=== PATIENT | male | born 1970 | race Caucasian/White ===

== ENCOUNTER 2016-06-25 11:14 | Inpatient (IN) | payer OTHER ==
--- NOTE | 2016-06-25 11:34 | PDOC ---
History of Present Illness - General History Source: Patient Exam Limitations: No Limitations - History of Present Illness Initial Comments: CHIEF COMPLAINT: 45 y/o afebrile male with PMH kidney stones c/o right side and back pain for the past 3 days. HISTORY OF PRESENT ILLNESS: The patient states the pain has been getting worse over the past 3 days and is now constant. He states it feels like kidney stone pain. He also admits to nausea and vomiting. He denies f/c, THURMAN, CP, SOB, abd pain, hematuria, dysuria. Vital signs on arrival are within normal limits. REVIEW OF SYSTEMS: GENERAL/CONSTITUTIONAL: no fever/chills. No weakness. No weight change. HEAD, EYES, EARS, NOSE AND THROAT: No change in vision. No ear pain or discharge. No sore throat. CARDIOVASCULAR: No chest pain or shortness of breath. RESPIRATORY: No cough, wheezing, or hemoptysis. GASTROINTESTINAL: +nausea and vomiting. No diarrhea or abd pain. +right back pain GENITOURINARY: No dysuria, frequency, or change in urination. MUSCULOSKELETAL: No joint or muscle swelling or pain. No neck or back pain. SKIN: No rash or easy bruising. NEUROLOGIC: No headache, vertigo, loss of consciousness, or loss of sensation. PHYSICAL EXAM: GENERAL: The patient is awake, alert, and fully oriented, in no acute distress. HEAD: Normal with no signs of trauma. ENT: Pupils equal, round and reactive to light, extraocular movements intact, sclera anicteric, conjunctiva clear. Neck supple. LUNGS: Clear to auscultation bilaterally. Normal excursion. No respiratory distress or use of accessory muscles. CV: RRR, S1/S2, no MRG. Cap refill < 2 sec. ABDOMEN: Soft, non-distended, non-tender even to deep palpation, no hepatomegaly or splenomegaly, no masses. No suprapubic TTP. BACK: No flank pain with palpation. Right CVA TTP. EXTREMITIES: Normal range of motion, no edema. NEUROLOGICAL: Normal speech, normal gait. CN II-XII grossly intact. PSYCH: Normal mood, normal affect. SKIN: Warm, dry, normal turgor, no rashes or lesions noted. <Modesta Crawford - Last Filed: 06/25/16 16:26> <Fernandez Gordon - Last Filed: 06/25/16 20:09> - General Chief Complaint: Pain, Acute Stated Complaint: KIDNEY PAIN Time Seen by Provider: 06/25/16 11:32 Past History - Past Medical History Kidney Stones: Yes - Psycho/Social/Smoking Cessation Hx Anxiety: No Suicidal Ideation: No Smoking Status: No Smoking History: Never smoked Number of Cigarettes Smoked Daily: 0 Hx Alcohol Use: No Drug/Substance Use Hx: No <Modesta Crawford - Last Filed: 06/25/16 16:26> <Fernandez Gordon - Last Filed: 06/25/16 20:09> - Past Medical History Allergies/Adverse Reactions: Allergies Allergy/AdvReac Type Severity Reaction Status Date / Time No Known Allergies Allergy Verified 06/25/16 11:19 *Physical Exam - Vital Signs Last Vital Signs Temp Pulse Resp BP Pulse Ox 98.5 F 73 16 134/80 97 06/25/16 11:16 06/25/16 11:16 06/25/16 11:16 06/25/16 11:16 06/25/16 11:16 <Modesta Crawford - Last Filed: 06/25/16 16:26> - Vital Signs Last Vital Signs Temp Pulse Resp BP Pulse Ox 98.5 F 73 16 134/80 97 06/25/16 11:16 06/25/16 11:16 06/25/16 11:16 06/25/16 11:16 06/25/16 11:16 <Fernandez Gordon - Last Filed: 06/25/16 20:09> ED Treatment Course - LABORATORY CBC & Chemistry Diagram: 06/25/16 12:00 06/25/16 12:22 <Modesta Crawford - Last Filed: 06/25/16 16:26> - LABORATORY CBC & Chemistry Diagram: 06/25/16 12:00 06/25/16 12:22 - ADDITIONAL ORDERS Additional order review: Laboratory Results 06/25/16 06/25/16 12:22 12:22 Sodium 136 Potassium 3.9 Chloride 100 Carbon Dioxide 24 Anion Gap 12 BUN 11 D Creatinine 1.4 H D Creat Clearance w eGFR 55.05 Random Glucose 117 H Calcium 8.6 Total Bilirubin 1.2 H D AST 21 ALT 21 D Alkaline Phosphatase 67 Total Protein 6.3 L Albumin 3.6 Urine Color Colorless Urine Appearance Clear Urine pH 6.0 Ur Specific [place] 1.002 Urine Protein Negative Urine Glucose (UA) Negative Urine Ketones Negative Urine Blood Negative Urine Nitrite Negative Urine Bilirubin Negative Urine Urobilinogen Negative Ur Leukocyte Esterase Negative 06/25/16 12:00 RBC 4.83 MCV 89.1 MCHC 34.0 RDW 13.8 MPV 8.1 Neutrophils % 76.6 D Lymphocytes % 13.7 D Monocytes % 8.9 Eosinophils % 0.6 D Basophils % 0.2 - Medications Given in the ED: ED Medications Discontinued Medications Generic Name Dose Route Start Last Admin Trade Name Freq PRN Reason Stop Dose Admin Sodium Chloride 1,000 mls @ 1,000 mls/hr 06/25/16 12:00 06/25/16 12:48 Normal Saline - IV 06/25/16 12:59 1,000 mls/hr ASDIR STA Administration Ketorolac Tromethamine 30 mg 06/25/16 13:54 06/25/16 14:38 Toradol Injection - IVPUSH 06/25/16 13:55 30 mg ONCE ONE Administration Morphine Sulfate 4 mg 06/25/16 12:01 06/25/16 12:48 Morphine Injection - IVPUSH 06/25/16 12:02 4 mg ONCE ONE Administration Ondansetron HCl 4 mg 06/25/16 12:37 06/25/16 12:48 Zofran Injection IVPUSH 06/25/16 12:38 4 mg ONCE ONE Administration Phenazopyridine HCl 100 mg 06/25/16 14:22 06/25/16 15:07 Pyridium - PO 06/25/16 14:23 100 mg ONCE ONE Administration <Fernandez Gordon - Last Filed: 06/25/16 20:09> Medical Decision Making - Medical Decision Making A/P: 45 y/o male with possible right kidney stone. He took PO Advil about 1 hour ago at home. Plan is as follows: 1. Labs 2. UA 3. IV fluids 4. Iv morphine 5. Kidney ultrasound Kidney/renal ultrasound IMPRESSION: Small right renal nonobstructing stones measuring up to 6mm with mild right hydronephrosis. Questionable tiny nonobstructing left renal stone without evidence of hydronephrosis. The patient cannot believe he doesn't have an obstruction and is requesting CT scan Ordered IV toradol and Spiral CT. Spiral CT IMPRESSION: 5-6mm right UVJ obstructing stone resulting in mild to moderate proximal hydronephrosis. Placed call to Urologist correctional manager Hospitalist accepted admission to the hospital. Pt made aware of the plan. <Modesta Crawford - Last Filed: 06/25/16 16:26> - Medical Decision Making 06/25/16 20:08 The patient was seen and evaluated in conjunction with DEMETRIO Crawford under my direct supervision, ancillary studies were reviewed. I independently interviewed and evaluated the patient and I agree with the plan as outlined by DEMETRIO Crawford . 45-year-old gentleman history of kidney stones presenting with 2 days of right flank pain was persistent and unremitting, no associated fever, chills, dysuria. The patient is currently feeling improved after pain medication. Patient's blood work is notable for creatinine of 1.4. The patient's CT and ultrasound revealed hydronephrosis with a 5-6 mm stone in the right UVJ. The patient was admitted for further management of his kidney stone and elevated creatinine. <Fernandez Gordon - Last Filed: 06/25/16 20:09> *DC/Admit/Observation/Transfer - Discharge Dispostion Admit: Yes <Modesta Crawford - Last Filed: 06/25/16 16:26> <Fernandez Gordon - Last Filed: 06/25/16 20:09> Diagnosis at time of Disposition: Hydronephrosis with renal and ureteral calculous obstruction - Referrals
[2016-06-25] MEDS ORDERED: SODIUM CHLORIDE 1,000 ML IV STA (12:00)
[2016-06-25] MEDS ORDERED: morphine CARPU-JECT 4 MG/1 ML DISP.SYRIN IVPUSH ONE (12:01)
[2016-06-25] MEDS ORDERED: morphine CARPU-JECT 4 MG/1 ML DISP.SYRIN ONE (12:37)
[2016-06-25] MEDS ORDERED: ONDANSETRON 4 MG/2 ML VIAL ONE (12:37)
[2016-06-25] MEDS ORDERED: ONDANSETRON 4 MG/2 ML VIAL IVPUSH ONE (12:37)
[2016-06-25 12:51] LABS: BASOPHIL 0.2 % (0-2.0); EOSINOPHIL 0.6 % (0-4.5); MCH 30.3 pg (25.7-33.7); MEAN CELL VOLUME 89.1 fl (80-96); MEAN PLT VOLUME 8.1 fl (7.5-11.1); NEUTROPHILS 76.6 % (42.8-82.8); PLATELET COUNT 177 K/MM3 (134-434); RDW 13.8 % (11.9-15.9); WHITE BLOOD COUNT 10.1 K/mm3 (4.0-10.0)
[2016-06-25 12:52] LABS: URINE APPEARANCE CLEAR; URINE BILIRUBIN NEGATIVE (NEGATIVE); URINE BLOOD NEGATIVE (NEGATIVE); URINE COLOR COLORLESS; URINE GLUCOSE (UA) NEGATIVE (NEGATIVE); URINE KETONE NEGATIVE (NEGATIVE); URINE LEUK ESTERASE NEGATIVE (NEGATIVE); URINE NITRITE NEGATIVE (NEGATIVE); URINE PROTEIN NEGATIVE (NEGATIVE); URINE UROBILINOGEN NEGATIVE E.U./dl (0.2-1.0)
[2016-06-25 13:17] LABS: ALBUMIN 3.6 g/dl (3.4-5.0); BILIRUBIN,TOTAL 1.2 mg/dL (0.2-1.0); CALCIUM 8.6 mg/dL (8.5-10.1); COCKROFT - GAULT 79.91; CREATININE 1.4 mg/dL (0.7-1.3); TOT PROT 6.3 g/dl (6.4-8.2)
[2016-06-25] MEDS ORDERED: KETOROLAC TROMETHAMINE 30 MG/1 ML VIAL IVPUSH ONE (13:54)
[2016-06-25] MEDS ORDERED: KETOROLAC TROMETHAMINE 30 MG/1 ML VIAL ONE (14:17)
[2016-06-25] MEDS ORDERED: PHENAZOPYRIDINE HCL 100 MG TABLET (FP) PO ONE (14:22)
[2016-06-25] MEDS ORDERED: TAMSULOSIN HCL 0.4 MG CAP.ER.24H (FP) ONE (16:34)
[2016-06-25] MEDS: TAMSULOSIN HCL 0.4 MG CAP.ER.24H (FP) PO SCH (16:47)
[2016-06-25] MEDS: SODIUM CHLORIDE 1,000 ML IV SCH (16:47)
--- NOTE | 2016-06-25 16:51 | HP ---
CHIEF COMPLAINT: Right flank pain PCP: Dr Erin Ardon HISTORY OF PRESENT ILLNESS: 45 year old male with pmh of kidney stone (5 times in last 10 years) presented to the ED with complaint of right flank pain. the pain started on Friday intermittently and mild. Pain has gradually increased in severitya nd frequency to becoming almost constant, 12/24, both dull and sharp/stabbing in right lower back, non radiating. Pt is accompanied by nausea and vomiting, watery mouth. no fever or chills, no dizziness. No abdominal pain, diarrhea, constipation, no dysuria, hematuria. ER course was notable for: (1) CBC, CMP (2) US renal, Spiral CT abdomen and pelvis (3) Recent Travel: none PAST MEDICAL HISTORY: Kidney stones PAST SURGICAL HISTORY: none Social History: Smoking:none Alcohol:none Drugs: none Family History: non- contributory Allergies No Known Allergies Allergy (Verified 06/25/16 11:19) HOME MEDICATIONS: none REVIEW OF SYSTEMS CONSTITUTIONAL: Absent: fever, chills, diaphoresis, generalized weakness, malaise, loss of appetite, weight change HEENT: Absent: rhinorrhea, nasal congestion, throat pain, throat swelling, difficulty swallowing, mouth swelling, ear pain, eye pain, visual changes CARDIOVASCULAR: Absent: chest pain, syncope, palpitations, irregular heart rate, lightheadedness , peripheral edema RESPIRATORY: Absent: cough, shortness of breath, dyspnea with exertion, orthopnea, wheezing, stridor, hemoptysis GASTROINTESTINAL:nausea, vomiting, Absent: abdominal pain, abdominal distension, diarrhea, constipation, melena, hematochezia GENITOURINARY: Absent: dysuria, frequency, urgency, hesitancy, hematuria, flank pain, genital pain MUSCULOSKELETAL: right back pain/flank pain Absent: myalgia, arthralgia, joint swelling,, neck pain SKIN: Absent: rash, itching, pallor HEMATOLOGIC/IMMUNOLOGIC: Absent: easy bleeding, easy bruising, lymphadenopathy, frequent infections ENDOCRINE: Absent: unexplained weight gain, unexplained weight loss, heat intolerance, cold intolerance NEUROLOGIC: Absent: headache, focal weakness or paresthesias, dizziness, unsteady gait, seizure, mental status changes, bladder or bowel incontinence PSYCHIATRIC: Absent: anxiety, depression, suicidal or homicidal ideation, hallucinations. PHYSICAL EXAMINATION Vital Signs - 24 hr 06/25/16 11:16 Temperature 98.5 F Pulse Rate 73 Respiratory 16 Rate Blood Pressure 134/80 O2 Sat by Pulse 97 Oximetry (%) GENERAL: Awake, alert, and fully oriented, in no acute distress. HEAD: Normal with no signs of trauma. NECK: Normal range of motion, supple without lymphadenopathy, JVD, or masses. LUNGS: Breath sounds equal, clear to auscultation bilaterally. No wheezes, and no crackles. No accessory muscle use. HEART: Regular rate and rhythm, normal S1 and S2 without murmur, rub or gallop. ABDOMEN: Soft, nontender, not distended, normoactive bowel sounds, no guarding, no rebound, no masses. No hepatomegaly or splenomegaly. MUSCULOSKELETAL: Normal range of motion at all joints. No bony deformities or tenderness. right CVA tenderness. UPPER EXTREMITIES: 2+ pulses, warm, well-perfused. No cyanosis. No clubbing. No peripheral edema. LOWER EXTREMITIES: 2+ pulses, warm, well-perfused. No calf tenderness. No peripheral edema. NEUROLOGICAL: Normal speech. Normal gait. PSYCHIATRIC: Cooperative. Good eye contact. Appropriate mood and affect. SKIN: Warm, dry, normal turgor, no rashes or lesions noted, normal capillary refill. Laboratory Results - last 24 hr 06/25/16 06/25/16 06/25/16 12:00 12:22 12:22 WBC 10.1 H D RBC 4.83 Hgb 14.6 Hct 43.0 MCV 89.1 MCHC 34.0 RDW 13.8 Plt Count 177 MPV 8.1 Neutrophils % 76.6 D Lymphocytes % 13.7 D Monocytes % 8.9 Eosinophils % 0.6 D Basophils % 0.2 Sodium 136 Potassium 3.9 Chloride 100 Carbon Dioxide 24 Anion Gap 12 BUN 11 D Creatinine 1.4 H D Creat Clearance w eGFR 55.05 Random Glucose 117 H Calcium 8.6 Total Bilirubin 1.2 H D AST 21 ALT 21 D Alkaline Phosphatase 67 Total Protein 6.3 L Albumin 3.6 Urine Color Colorless Urine Appearance Clear Urine pH 6.0 Ur Specific [place] 1.002 Urine Protein Negative Urine Glucose (UA) Negative Urine Ketones Negative Urine Blood Negative Urine Nitrite Negative Urine Bilirubin Negative Urine Urobilinogen Negative Ur Leukocyte Esterase Negative ASSESSMENT/PLAN: 45 year old male with pmh of kidney stone (5 times in last 10 years) presented to the ED with complaint of right flank pain. Pt was found to have multiple stones on US and a 6mn obstructing stone in right ureterovesicular junction. UVJ Obstructing stone IV fluid with NS at 100ml/h ketorolac 15mg IV Q6h prn Morphine 4mg Iv q4h prn tamulosin 0.4mg PO daily urology consulted Zofran 4mg Q6H prn ESME likely due to obstruction Cr 1.4 IV fluid repeat in am will consider Fena, Urine lytes if still rising in am Hyperbilirubenemia Will trend FEN NS at 100ml/h electrolytes: no abnormalities Nutrition: regular diet DVT prophylaxis: SCD, early ambulation Disposition: keep in medsurg pending passing stone and/or urology eval Visit type - Emergency Visit Emergency Visit: Yes Care time: The patient presented to the Emergency Department on the above date and was hospitalized for further evaluation of their emergent condition. - New Patient This patient is new to me today: Yes Date on this admission: 06/25/16 - Critical Care Critical Care patient: No
[2016-06-25] MEDS ORDERED: morphine CARPU-JECT 4 MG/1 ML DISP.SYRIN IVPUSH PRN (16:52)
[2016-06-25] MEDS ORDERED: KETOROLAC TROMETHAMINE 15 MG/ML VIAL IVPUSH PRN (16:53)
[2016-06-25] MEDS ORDERED: ONDANSETRON 4 MG/2 ML VIAL IVPUSH PRN (16:54)
--- NOTE | 2016-06-25 17:25 | PN ---
Teaching Attending Note Name of Resident: Cristiano Quinones ATTENDING PHYSICIAN STATEMENT I saw and evaluated the patient. I reviewed the resident's note and discussed the case with the resident. I agree with the resident's findings and plan as documented. SUBJECTIVE: OBJECTIVE: Vital Signs Period Temp Pulse Resp BP Sys/Rivas Pulse Ox Last 24 Hr 98.5 F 73 16 134/80 97 ASSESSMENT AND PLAN:
[2016-06-26 00:23] VITALS: BMI 28.3
--- NOTE | 2016-06-26 07:51 | PN ---
Physical Exam: SUBJECTIVE: Patient seen and examined Pt is feeling well Awaiting urologist to come NO fever or chills No n/v No hematuria or dysuria No abdominal pain pain is controlled OBJECTIVE: Vital Signs Period Temp Pulse Resp BP Sys/Rivas Pulse Ox Last 24 Hr 97.6 F-97.7 F 64-76 17-20 124-138/65-80 97-99 GENERAL: The patient is awake, alert, and fully oriented, in no acute distress. HEAD: Normal with no signs of trauma. LUNGS: Breath sounds equal, clear to auscultation bilaterally, no wheezes, no crackles, no accessory muscle use. HEART: Regular rate and rhythm, S1, S2 without murmur, rub or gallop. ABDOMEN: Soft, nontender, nondistended, normoactive bowel sounds, no guarding, no rebound, no hepatosplenomegaly, no masses. right lower back tenderness, right CVA tenderness EXTREMITIES: 2+ pulses, warm, well-perfused, no edema. NEUROLOGICAL: . Normal speech, gait not observed. PSYCH: Normal mood, normal affect. SKIN: Warm, dry, normal turgor, no rashes or lesions noted Active Medications Generic Name Dose Route Start Last Admin Trade Name Freq PRN Reason Stop Dose Admin Sodium Chloride 1,000 mls @ 100 mls/hr 06/25/16 16:00 06/25/16 16:47 Normal Saline - IV 100 mls/hr ASDIR TU Administration Ketorolac Tromethamine 15 mg 06/25/16 16:53 Toradol Injection - IVPUSH 06/30/16 16:59 Q6H PRN BACK PAIN Morphine Sulfate 4 mg 06/25/16 16:52 06/26/16 00:04 Morphine Injection - IVPUSH 4 mg Q4H PRN Administration PAIN Ondansetron HCl 4 mg 06/25/16 16:54 Zofran Injection IVPUSH Q6H PRN NAUSEA Tamsulosin HCl 0.4 mg 06/25/16 16:15 06/25/16 16:47 Flomax - PO 0.4 mg DAILY@0830 TU Administration CBC, BMP 06/25/16 12:00 06/25/16 12:22 CBC, BMP 06/25/16 12:00 06/26/16 08:35 Laboratory Tests 06/25/16 12:22 Total Bilirubin 1.2 H D ASSESSMENT/PLAN: 45 year old male with pmh of kidney stone (5 times in last 10 years) presented to the ED with complaint of right flank pain. Pt was found to have multiple stones on US and a 6mn obstructing stone in right ureterovesicular junction. UVJ Obstructing stone IV fluid with NS at 100ml/h ketorolac 15mg IV Q6h prn Morphine 4mg Iv q4h prn tamulosin 0.4mg PO daily Zofran 4mg Q6H prn Urology consulted Dr Calle. After discussion with urologist, the patient elected to have stent and likely lithotripsy this afternoon. ESME likely due to obstruction Cr was 1.4 but with IV fluid improved to 1.1 IV fluid Hyperbilirubenemia (resolved) was 1.4 now 0.7 FEN NS at 100ml/h electrolytes: no abnormalities Nutrition: regular diet DVT prophylaxis: SCD, early ambulation Disposition: Pending stent placement with possible lithotripsy Visit type - Emergency Visit Emergency Visit: Yes ED Registration Date: 06/25/16 Care time: The patient presented to the Emergency Department on the above date and was hospitalized for further evaluation of their emergent condition. - New Patient This patient is new to me today: Yes - Critical Care Critical Care patient: No - Discharge Referral Referred to [facility] Med P.C.: No
[2016-06-26] MEDS: TAMSULOSIN HCL 0.4 MG CAP.ER.24H (FP) PO SCH (08:04)
[2016-06-26 09:35] LABS: ALBUMIN 3.4 g/dl (3.4-5.0); ANION GAP 8 (8-16); BILIRUBIN,TOTAL 0.7 mg/dL (0.2-1.0); CALCIUM 8.5 mg/dL (8.5-10.1); CO2 27 mmol/L (21-32); COCKROFT - GAULT 108.36; CREATININE 1.1 mg/dL (0.7-1.3); GLUCOSE,RANDOM 93 mg/dL (74-106); SGOT/AST 15 U/L (15-37); SGPT/ALT 17 U/L (12-78); TOT PROT 6.1 g/dl (6.4-8.2)
[2016-06-26 09:36] LABS: ALK PHOS 63 U/L (45-117)
[2016-06-26] MEDS: SODIUM CHLORIDE 1,000 ML IV SCH (10:22)
--- NOTE | 2016-06-26 15:40 | CONSULT ---
Consult - text type - Consultation Consultation Note: 45 yo nale w hx of renal calculi now presenting w right flank pain No f/c/ns pain currently controlled WBC [address] b/l non obstuctung renal calculi Right 6 mm uvj stone w hydronephrosis Discussed plan w pt and gave options of URS vs eswl Pt planned trip out of the country on Friday Based on this will proceed w stent and likely lithotripsy Discussed risks and benefits all questions answered
--- NOTE | 2016-06-26 16:11 | PN ---
Teaching Attending Note Name of Resident: Cristiano Quinones ATTENDING PHYSICIAN STATEMENT I saw and evaluated the patient. I reviewed the resident's note and discussed the case with the resident. I agree with the resident's findings and plan as documented. SUBJECTIVE: OBJECTIVE: Vital Signs Period Temp Pulse Resp BP Sys/Rivas Pulse Ox Last 24 Hr 97.6 F-98.6 F 64-93 17-20 124-140/65-83 97-99 ASSESSMENT AND PLAN:
[2016-06-26] MEDS ORDERED: PROPOFOL 20 ML ONE (17:42)
[2016-06-26] MEDS ORDERED: SUCCINYLCHOLINE CHLORIDE 200 MG/10 ML VIAL ONE (17:43)
[2016-06-26] MEDS ORDERED: MIDAZOLAM HCL 2 MG/2 ML SINGLE DOSE VIAL ONE (17:43)
[2016-06-26] MEDS ORDERED: LIDOCAINE HCL/PF 2% SDV 5ML VIAL ONE (17:45)
[2016-06-26] MEDS ORDERED: ceFAZolin SODIUM 1 GM VIAL ONE (18:16)
[2016-06-26] MEDS ORDERED: ceFAZolin SODIUM 1 GM VIAL IVPB ONE (18:17)
[2016-06-26] MEDS ORDERED: DEXAMETHASONE SOD PHOSPHATE 4 MG/1 ML VIAL ONE (18:18)
[2016-06-26] MEDS ORDERED: KETOROLAC TROMETHAMINE 30 MG/1 ML VIAL ONE (18:46)
--- NOTE | 2016-06-26 18:55 | OP ---
Operative Note - Note: Operative Date: 06/26/16 Pre-Operative Diagnosis: Right renal colic Operation: Right ureteroscopy laser lithotripsy stent placement Findings: right distal ureteral 6 mm stone Post-Operative Diagnosis: Same as Pre-op Anesthesia: General Estimated Blood Loss (mls): 2 Drains & Tubes with Location: 22 cm 6 fr dj stent
[2016-06-26] MEDS ORDERED: SODIUM CHLORIDE 1,000 ML IV SCH (18:57)
[2016-06-26] MEDS ORDERED: PROMETHAZINE HCL 25 MG/1 ML VIAL IVPUSH PRN (19:02)
[2016-06-26] MEDS ORDERED: MEPERIDINE HCL CARPU-JECT 25 MG/1 ML DISP.SYRIN IVPUSH ONE (19:02)
[2016-06-26] MEDS ORDERED: LACTATED RINGERS SOLUTION 1,000 ML IV SCH (19:15)
[2016-06-26 20:48] VITALS: BP 149/89; PULSE 78; TEMP 97.1
--- NOTE | 2016-06-27 00:13 | DS ---
Physical Exam: SUBJECTIVE: Patient seen and examined No s/s of acute No pain No fever or chills no hematuria OBJECTIVE: Vital Signs Period Temp Pulse Resp BP Sys/Rivas Pulse Ox Last 24 Hr 97.1 F-98.6 F 64-93 15-20 124-149/72-89 97-100 PHYSICAL EXAM GENERAL: The patient is awake, alert, and fully oriented, in no acute distress. HEAD: Normal with no signs of trauma. LUNGS: Breath sounds equal, clear to auscultation bilaterally, no wheezes, no crackles, no accessory muscle use. HEART: Regular rate and rhythm, S1, S2 without murmur, rub or gallop. ABDOMEN: Soft, nontender, nondistended, normoactive bowel sounds, no guarding, no rebound, no hepatosplenomegaly, no masses. right lower back tenderness, right CVA tenderness EXTREMITIES: 2+ pulses, warm, well-perfused, no edema. NEUROLOGICAL: . Normal speech, gait not observed. PSYCH: Normal mood, normal affect. SKIN: Warm, dry, normal turgor, no rashes or lesions noted LABS Laboratory Results - last 24 hr 06/26/16 08:35 Sodium 145 Potassium 3.8 Chloride 110 H Carbon Dioxide 27 Anion Gap 8 BUN 9 Creatinine 1.1 D Creat Clearance w eGFR > 60 Random Glucose 93 D Calcium 8.5 Total Bilirubin 0.7 D AST 15 D ALT 17 Alkaline Phosphatase 63 Total Protein 6.1 L Albumin 3.4 HOSPITAL COURSE: Date of Admission:06/25/16 45 year old male with pmh of kidney stone (5 times in last 10 years) presented to the ED with complaint of right flank pain. the pain started on Friday intermittently and mild. Pain has gradually increased in severity and frequency to becoming almost constant, /, both dull and sharp/stabbing in right lower back, non radiating. Pt is accompanied by nausea and vomiting, watery mouth. no fever or chills, no dizziness. No abdominal pain, diarrhea, constipation, no dysuria, hematuria. ER course was notable for: (1) CBC, CMP (2) US renal, Spiral CT abdomen and pelvis 45 year old male with pmh of kidney stone (5 times in last 10 years) presented to the ED with complaint of right flank pain. Pt was found to have multiple stones on US and a 6mn obstructing stone in right ureterovesicular junction. IV fluid was started with NS at 100ml/h. Ketorolac 15mg IV Q6h prn, Morphine 4mg Iv q4h prn, tamulosin 0.4mg PO daily, Zofran 4mg Q6H prn was ordered. Urology consulted Dr Calle. After discussion with urologist, the patient elected to have Right ureteroscopy laser lithotripsy with a 22 cm 6 fr dj stent placed. Procedure was successful and patient was discharged. Date of Discharge: 06/27/16 Minutes to complete discharge: 45 Discharge Summary Reason For Visit: HYDROMEPHROSIS W/OBSTRUCTING CALCULUS Current Active Problems Hydronephrosis with renal and ureteral calculous obstruction (Acute) - Instructions Diet, Activity, Other Instructions: drink plenty of liquids Come to office for stent removal aafter return from [place] Disposition: HOME - Home Medications Comprehensive Discharge Medication List: Ambulatory Orders NK [No Known Home Medication] 06/26/16 This patient is new to me today: Yes Emergency Visit: Yes ED Registration Date: 06/25/16 Care time: The patient presented to the Emergency Department on the above date and was hospitalized for further evaluation of their emergent condition. Critical Care patient: No - Discharge Referral Referred to [facility] Med P.C.: No
--- NOTE | 2016-06-27 11:41 | EKG ---
Test Reason : Blood Pressure : / mmHG Vent. Rate : 071 BPM Atrial Rate : 071 BPM P-R Int : 144 ms QRS Dur : 096 ms QT Int : 388 ms P-R-T Axes : 050 058 031 degrees QTc Int : 421 ms NORMAL SINUS RHYTHM NORMAL ECG NO PREVIOUS ECGS AVAILABLE Confirmed by SHALINI ABREU MD ([id number]) on 06/27/2016 11:41:06 AM Referred By: Confirmed By:SHALINI ABREU MD
--- NOTE | 2016-08-29 14:26 | OP ---
DATE OF OPERATION: 06/26/2016 PREOPERATIVE DIAGNOSIS: Right ureteral calculus. POSTOPERATIVE DIAGNOSIS: Right ureteral calculus. PROCEDURES: Right ureteroscopy, laser lithotripsy, and stent placement. HISTORY: This is a 46-year-old gentleman with a history of ureteral obstruction, hydronephrosis and severe pain. The patient had been scheduled to leave for a cruise approximately 2 days after the procedure. The treatment options were discussed. The patient agreed to undergo the above-stated procedure. Risks and benefits of treatment, alternative treatment was discussed in detail. All questions were answered. BRIEF OPERATIVE NOTE: The patient was brought into the operating room and placed in supine position. Once general anesthesia was administered, the patient was transferred to dorsal lithotomy position and prepped and draped in standard sterile fashion. Intravenous antibiotics were given. At this time, a 23-Gabonese cystoscope and sheath was placed into the bladder under direct vision. There were no urethral strictures. A wire was passed into the right ureteral orifice and fluoroscopically confirmed to be in the renal pelvis. The stone was fragmented through a 7.5-Gabonese semi-rigid ureteroscope with a 3-inch, 55-micron fiber laser. At this time, a 22-cm, 6-Gabonese double-J stent was passed over the wire. The bladder was drained. Patient brought to the recovery room in stable and satisfactory condition. DEVONTE CONN M.D. [id number]
== END 2016-06-26 21:24 | disposition home or self-care (01) | DRG 660 ==
LOC: JER 11:14 → JERBED 16:25 → J6S 23:34
PROVIDERS: ADMIT Internal Medicine; ATTEND Internal Medicine
PROC: 0TC08ZZ Extirpation of Matter from Right Kidney, Via Natural or Artificial Opening Endoscopic (ICD-10-PCS; principal; 2016-06-26 16:00)
PROC: 0T768DZ Dilation of Right Ureter with Intraluminal Device, Via Natural or Artificial Opening Endoscopic (ICD-10-PCS; 2016-06-26 16:00)
DX: N13.2 Hydronephrosis with renal and ureteral calculous obstruction (principal)
CPT/HCPCS: 36415; 74176; 76000-TC; 76775-TC; 80053; 81003; 85025; 93005; 93010; 94760; 99285-25